=== PATIENT | male | born 1955 | race African-American/Black ===

== ENCOUNTER 2017-11-16 00:21 | Emergency (ER) | payer MEDICARE ==
[~2017-11-16] VITALS: Ht 188 cm; Wt 106.8 kg
[2017-11-16 00:27] VITALS: Ht 188 cm; Wt 106.8 kg
[2017-11-16 01:07] LABS: BASOPHILS 0.2 % (0-2); EOSINOPHILS 1.1 % (0-7); HEMATOCRIT 38.6 % (42.0-54.0); HEMOGLOBIN 13.6 g/dL (13.5-17.5); IMMATURE GRANULOCYTES 0.4 % (0-5); LYMPHOCYTES 26.7 % (15-50); MCH 27.5 pg (26.0-34.0); MCHC 35.2 g/dL (31.0-37.0); MCV 78.1 fL (80.0-100.0); MEAN PLATELET VOLUME 10.1 fL (7.4-10.4); MONOCYTES 8.2 % (2-11); NEUTROPHILS 63.4 % (40-80); PLATELET COUNT 181 10x3/uL (130-400); RBC 4.94 10x6/uL (4.20-6.10); RDW 17.5 % (11.5-14.5); WBC 8.2 10x3/uL (4.8-10.8)
[2017-11-16 01:13] LABS: APTT 23.1 SECONDS (22.8-39.4); INR 1.03 (0.85-1.17); PROTIME 13.1 SECONDS (11.6-15.0)
[2017-11-16 01:27] LABS: ALBUMIN 3.4 g/dL (3.4-5.0); ALKALINE PHOSPHATASE 103 U/L (46-116); ALT (SGPT) 27 U/L (10-68); BILIRUBIN - TOTAL 0.23 mg/dL (0.2-1.3); CALC OSMOLALITY 280 mosm/kg (275-300); CALCIUM 8.9 mg/dL (8.5-10.1); CHLORIDE - SERUM 100 mmol/L (98-107); CREATININE - SERUM 1.7 mg/dL (0.6-1.3); GLUCOSE 196 mg/dL (74-106); POTASSIUM - SERUM 3.9 mmol/L (3.5-5.1); PROTEIN - SERUM 8.4 g/dL (6.4-8.2); SODIUM 137 mmol/L (136-145); UREA NITROGEN 19 mg/dL (7-18); eGFR NON AFRICAN AMERICAN 44 mL/min (90-120)
[2017-11-16 01:37] LABS: CKMB 1.8 U/L (0.0-3.6); CREATINE KINASE 437 UL (21-232); PRO BNP 79 pg/mL (0-125)
[2017-11-16 01:38] LABS: TROPONIN-I < 0.017 ng/mL (0.000-0.060)
[2017-11-16 07:14] VITALS: BP 136/91
== END 2017-11-16 07:16 | disposition home or self-care (01) ==
LOC: D.ER 00:21
PROVIDERS: Family Medicine
DX: R07.9 Chest pain, unspecified (principal); T67.5XXA Heat exhaustion, unspecified, initial encounter; X58.XXXA Exposure to other specified factors, initial encounter; Y93.89 Activity, other specified; Y92.89 Other specified places as the place of occurrence of the external cause; R25.2 Cramp and spasm